=== PATIENT | female | born 1965 | race Caucasian/White ===

== ENCOUNTER 2019-03-04 05:22 | Emergency (ER) | payer MEDICARE ==
[~2019-03-04] VITALS: Ht 162.6 cm; Wt 81.8 kg
[~2019-03-04 05:22] MED LIST: COUMADIN2.5 MG PO; DEXILANT60 MG PO; HYDROCODONE-APA1 TAB PO; LIPITOR40 MG PO; METOPROLOL TART50 MG PO; PHENERGAN25 M1 PO; PROAIR HFA8.5 GM INH; REGLAN10 MG PO; TOPAMAX25 MG PO; XANAX1 MG PO
[2019-03-04 05:27] VITALS: Ht 162.6 cm; Wt 81.8 kg
[2019-03-04] MEDS ORDERED: KEFLEX500 MG PO (05:42)
[2019-03-04 06:03] VITALS: BP 118/71
== END 2019-03-04 06:03 | disposition home or self-care (01) ==
LOC: D.ER 05:22
DX: S61.259A Open bite of unspecified finger without damage to nail, initial encounter (principal)

== ENCOUNTER 2020-01-08 06:25 | Day surgery (SDC) | payer MEDICARE, MEDICAID ==
[~2020-01-08] VITALS: Ht 162.6 cm; Wt 89.5 kg
[~2020-01-08 06:25] MED LIST changes: +KEFLEX500 MG PO
[2020-01-08 06:56] LABS: CARBON DIOXIDE 26.2 mmol/L (21.0-32.0); CREATININE - SERUM 0.9 mg/dL (0.6-1.3); POTASSIUM - SERUM 4.2 mmol/L (3.5-5.1)
[2020-01-08 07:22] LABS: BASOPHILS 0.6 % (0-2); EOSINOPHILS 2.4 % (0-7); HEMATOCRIT 38.8 % (36.0-48.0); HEMOGLOBIN 12.5 g/dL (12-16); IMMATURE GRANULOCYTES 0.2 % (0-5); LYMPHOCYTES 17.7 % (15-50); MCHC 32.2 g/dL (31.0-37.0); MEAN PLATELET VOLUME 10.6 fL (7.4-10.4); MONOCYTES 8.1 % (2-11); RBC 4.17 10x6/uL (4.00-5.40); RDW 13.2 % (11.5-14.5)
[2020-01-08] MEDS ORDERED: JANTOVEN1 MG PO (07:31)
[2020-01-08] MEDS ORDERED: PERCOCET 7.5/321 TAB PO (07:32)
[2020-01-08 07:33] LABS: PLATELET COUNT 353 10x3/uL (130-400)
[2020-01-08] MEDS ORDERED: [UNRECOGNIZED DRUG - OTHER] (07:34)
[2020-01-08] MEDS ORDERED: TOPROL XL50 MG PO (07:34)
[2020-01-08] MEDS ORDERED: ESTRACE 0.5 MG0.5 MG PO (07:34)
[2020-01-08] MEDS ORDERED: ZANAFLEX4 MG PO (07:35)
[2020-01-08] MEDS ORDERED: OMEPRAZOLE20 M1 PO (07:35)
--- NOTE | 2020-01-08 07:41 | NUR ---
STATES SHE STAYED OVERNIGHT IN HOSPITAL 3 MONTHS AGO FOR "HEART PROBLEMS". NO INFECTIOUS PROCESS IDENTIFIED
[2020-01-08 07:42] VITALS: BP 131/71; Ht 162.6 cm; Wt 89.5 kg
[2020-01-08 08:23] LABS: INR 1.68 (0.85-1.17); PROTIME 19.6 SECONDS (11.6-15.0)
--- NOTE | 2020-01-08 08:53 | NUR ---
DC INSTRUCTIONS GIVEN TO PT/SPOUSE. STATE UNDERSTANDING. DC'D IV CATH FULLY INTACT. WILL DC SHORTLY.
--- NOTE | 2020-01-08 08:57 | NUR ---
PT LEFT UNIT VIA WC AT 0803
--- NOTE | 2020-01-08 20:26 | OP ---
PATIENT NAME: KAREN PARMAR MEDICAL RECORD: [id number] :67 LOCATION:[facility] ADMISSION DATE: SURGEON: LUISANA HILL DO DATE OF OPERATION: 01/08/2020 PROCEDURE: EGD with biopsies. INDICATIONS FOR PROCEDURE: Dysphagia, GERD, nausea and vomiting, epigastric pain, generalized abdominal tenderness. SCOPE: Olympus video gastroscope. MEDICATIONS: Propofol 120 mg IV per anesthesia. ESTIMATED BLOOD LOSS: Minimal. COMPLICATIONS: None. FINDINGS: Informed consent was given. The patient was made comfortable with the above medication. After reaching an adequate level of sedation by slow IV push, the patient was placed on her left side. The endoscope was advanced under direct visualization through the mouth to the second portion of the duodenum with ease. The upper and middle esophagus appeared normal. In the distal esophagus and GE junction, there was evidence of reflux esophagitis. The reflux was moderate to severe in appearance and consistent with LA class C reflux-induced esophagitis. The endoscope was advanced beyond the GE junction into the stomach and retroflexed to view the cardia where there was evidence of a previous TIF procedure. The GE junction appeared anatomically normal with no evidence of hiatal hernia present at the GE junction. The mucosa of the entire stomach appeared within normal limits. Cold forceps biopsies were taken from the antrum and incisura to submit for histopathology and to rule out the presence of H. pylori. There were no ulcers or other lesions within the stomach itself. The endoscope was advanced beyond the pylorus into the duodenum, which appeared normal to the second portion. The endoscope was then withdrawn from the patient. The patient tolerated the procedure well and there were no complications. IMPRESSION: 1. LA class C reflux-induced esophagitis. 2. Evidence of a prior intervention involving the cardia, which was a TIF procedure. PLAN AND RECOMMENDATIONS: 1. Discharge home when recovery parameters are met. 2. Follow up biopsy specimen results. 3. GERD diet and reflux precautions. 4. Add famotidine 40 mg at bedtime and Carafate 1 gram t.i.d. times 30 days to the patient's regimen. 5. Follow up in GI clinic in 4-6 weeks. If symptoms of dysphagia and nausea and vomiting persists, consider both esophageal manometry and a gastric emptying scan. TRANSINT:[id number] Voice Confirmation ID: [id number] DOCUMENT ID: [id number] OPERATIVE REPORT [id number] KAREN PARMAR NATHAN A DO at 2026 CC: [id number] DICTATION DATE: 01/08/20818 TOWN MANAGER: 01/08/201903 [facility] 01/08/20 [facility] [address] [id number]
== END 2020-01-08 08:59 | disposition home or self-care (01) ==
LOC: D.OPS 06:25
PROVIDERS: Anesthesiology; ATTEND Internal Medicine Gastroenterology
DX: R13.10 Dysphagia, unspecified (principal); R11.2 Nausea with vomiting, unspecified; R10.13 Epigastric pain; K21.0 Gastro-esophageal reflux disease with esophagitis; K92.1 Melena; K59.00 Constipation, unspecified

== ENCOUNTER 2020-01-10 13:46 | Emergency (ER) | payer MEDICARE, MEDICAID ==
[~2020-01-10] VITALS: Ht 162.6 cm; Wt 89.5 kg
[~2020-01-10 13:46] MED LIST changes: +ESTRACE 0.5 MG0.5 MG PO; +JANTOVEN1 MG PO; +OMEPRAZOLE20 M1 PO; +PERCOCET 7.5/321 TAB PO; +TOPROL XL50 MG PO; +ZANAFLEX4 MG PO; +[UNRECOGNIZED DRUG - OTHER]
[2020-01-10 13:47] VITALS: Ht 162.6 cm; Wt 89.5 kg
[2020-01-10 14:09] LABS: BASOPHILS 0.7 % (0-2); EOSINOPHILS 1.7 % (0-7); HEMATOCRIT 38.8 % (36.0-48.0); HEMOGLOBIN 12.4 g/dL (12-16); IMMATURE GRANULOCYTES 0.3 % (0-5); LYMPHOCYTES 18.6 % (15-50); MCH 29.7 pg (26.0-34.0); MCV 92.8 fL (80.0-100.0); MEAN PLATELET VOLUME 10.3 fL (7.4-10.4); MONOCYTES 9.9 % (2-11); NEUTROPHILS 68.8 % (40-80); PLATELET COUNT 348 10x3/uL (130-400); RBC 4.18 10x6/uL (4.00-5.40); RDW 13.1 % (11.5-14.5); WBC 8.8 10x3/uL (4.8-10.8)
[2020-01-10 14:17] LABS: CALC OSMOLALITY 281 mosm/kg (275-300); CALCIUM 8.8 mg/dL (8.5-10.1); CHLORIDE - SERUM 104 mmol/L (98-107); CREATININE - SERUM 1.1 mg/dL (0.6-1.3); GLUCOSE 107 mg/dL (74-106); POTASSIUM - SERUM 3.5 mmol/L (3.5-5.1); SODIUM 141 mmol/L (136-145); UREA NITROGEN 15 mg/dL (7-18); eGFR NON AFRICAN AMERICAN 55 mL/min (90-120)
[2020-01-10 14:27] LABS: APTT 40.4 SECONDS (22.8-39.4); INR 1.82 (0.85-1.17); PROTIME 20.9 SECONDS (11.6-15.0)
[2020-01-10 14:34] LABS: ALKALINE PHOSPHATASE 120 U/L (30-120); ALT (SGPT) 20 U/L (10-68); BILIRUBIN - TOTAL 0.53 mg/dL (0.2-1.3); CKMB 0.9 U/L (0.0-3.6); CREATINE KINASE 55 UL (21-215); PROTEIN - SERUM 8.2 g/dL (6.4-8.2)
[2020-01-10 14:42] LABS: TROPONIN-I < 0.017 ng/mL (0.000-0.060)
[2020-01-10 15:30] VITALS: BP 141/70
== END 2020-01-10 15:30 | disposition home or self-care (01) ==
LOC: D.ER 13:46
PROVIDERS: Family Medicine
DX: S09.90XA Unspecified injury of head, initial encounter (principal); S40.012A Contusion of left shoulder, initial encounter; W19.XXXA Unspecified fall, initial encounter; Y93.9 Activity, unspecified; Y92.9 Unspecified place or not applicable; Z86.73 Personal history of transient ischemic attack (TIA), and cerebral infarction without residual deficits; J45.909 Unspecified asthma, uncomplicated; K21.9 Gastro-esophageal reflux disease without esophagitis; M54.2 Cervicalgia; R51 Headache; M25.512 Pain in left shoulder

== ENCOUNTER 2020-01-16 18:58 | Emergency (ER) | payer MEDICARE, MEDICAID ==
[~2020-01-16] VITALS: Ht 162.6 cm; Wt 88.6 kg
[2020-01-16 19:04] VITALS: BP 153/93; Ht 162.6 cm; Wt 88.6 kg
[2020-01-16 19:44] LABS: BASOPHILS 0.3 % (0-2); EOSINOPHILS 2.3 % (0-7); HEMATOCRIT 35.4 % (36.0-48.0); HEMOGLOBIN 11.4 g/dL (12-16); IMMATURE GRANULOCYTES 0.3 % (0-5); LYMPHOCYTES 18.7 % (15-50); MCH 29.8 pg (26.0-34.0); MCHC 32.2 g/dL (31.0-37.0); MCV 92.4 fL (80.0-100.0); MEAN PLATELET VOLUME 10.7 fL (7.4-10.4); MONOCYTES 11.6 % (2-11); NEUTROPHILS 66.8 % (40-80); PLATELET COUNT 329 10x3/uL (130-400); RBC 3.83 10x6/uL (4.00-5.40); RDW 13.3 % (11.5-14.5); WBC 10.4 10x3/uL (4.8-10.8)
[2020-01-16 19:56] LABS: INR 1.83 (0.85-1.17); PROTIME 20.9 SECONDS (11.6-15.0)
[2020-01-16 20:02] LABS: ANION GAP 8.6 mmol/L (8-16); CALCIUM 8.5 mg/dL (8.5-10.1); CARBON DIOXIDE 28.1 mmol/L (21.0-32.0); CREATININE - SERUM 0.9 mg/dL (0.6-1.3); POTASSIUM - SERUM 3.7 mmol/L (3.5-5.1)
[2020-01-16 20:10] LABS: ALBUMIN 3.8 g/dL (3.4-5.0); BILIRUBIN - TOTAL 0.37 mg/dL (0.2-1.3); C-REACTIVE PROTEIN 0.4 mg/dL (0.0-0.9); PROTEIN - SERUM 7.4 g/dL (6.4-8.2); THYROID STIMULATING HORMONE 1.14 uIU/mL (0.36-3.74)
[2020-01-16 20:23] LABS: BILIRUBIN NEGATIVE (NEGATIVE); GLUCOSE NEGATIVE (NEGATIVE); KETONE NEGATIVE (NEGATIVE); NITRITE NEGATIVE (NEGATIVE); UROBILINOGEN NORMAL (NORMAL)
[2020-01-16 20:24] LABS: WHITE CELLS - URINE OCC /hpf (NEGATIVE)
[2020-01-16 20:25] LABS: BACTERIA FEW /hpf (NEGATIVE); EPITHELIAL CELLS OCC /hpf (0-5)
[2020-01-16 20:33] LABS: UDS - AMPHET NEGATIVE QUAL (NEGATIVE); UDS - BARB NEGATIVE QUAL (NEGATIVE); UDS - BENZO NEGATIVE QUAL (NEGATIVE); UDS - COCAINE NEGATIVE QUAL (NEGATIVE); UDS - OPIATE NEGATIVE QUAL (NEGATIVE); UDS - PCP NEGATIVE QUAL (NEGATIVE); UDS - THC NEGATIVE QUAL (NEGATIVE)
== END 2020-01-16 20:32 | disposition left against medical advice (07) ==
LOC: D.ER 18:58
PROVIDERS: Family Medicine
DX: Z79.01 Long term (current) use of anticoagulants (principal); Z86.73 Personal history of transient ischemic attack (TIA), and cerebral infarction without residual deficits; J45.909 Unspecified asthma, uncomplicated; K21.9 Gastro-esophageal reflux disease without esophagitis; R10.31 Right lower quadrant pain; W19.XXXA Unspecified fall, initial encounter; Y93.9 Activity, unspecified; Y92.9 Unspecified place or not applicable